=== PATIENT | female | born 1945 | race Caucasian/White ===

== ENCOUNTER → 2018-08-02 | Outpatient (CLI) | payer OTHER ==
[~2018-08-02] MED LIST: ASPIR 8181 MG PO; BIOTIN5 M1 PO; CENTRUM SILVER1 EAC4 PO; DIFLUCAN200 MG PO; FISH OIL 1,001000 M2 PO; FLAX SEED OIL1 EACH PO; HYDROCHLOROTHIA25 M1 PO; KLOR-CON 1010 MEQ PO; LOVASTATIN 20 M20 MG PO; MECLIZINE HCL25 MG PO; MELATONIN3 MG PO; METFORMIN HCL500 MG PO; OMEGA-31000 M1 PO; OMEPRAZOLE40 MG PO; PROPRANOLOL 1010 MG PO; VALACYCLOVIR1000 MG PO; VITAMIN D3400 UNIT PO
== END ==
LOC: M.RAD 07:31
DX: Z12.31 Encounter for screening mammogram for malignant neoplasm of breast (principal); K80.20 Calculus of gallbladder without cholecystitis without obstruction; K21.9 Gastro-esophageal reflux disease without esophagitis; K58.9 Irritable bowel syndrome, unspecified; R19.7 Diarrhea, unspecified

== ENCOUNTER → 2019-02-11 | Outpatient (CLI) | payer OTHER | LOC: M.ULTRA 07:17 | DX: K80.20 Calculus of gallbladder without cholecystitis without obstruction (principal) ==

== ENCOUNTER → 2019-08-11 | Outpatient (CLI) | payer OTHER | LOC: M.RAD 08-10 08:00 | DX: Z12.31 Encounter for screening mammogram for malignant neoplasm of breast (principal); Z78.0 Asymptomatic menopausal state ==

== ENCOUNTER → 2020-08-13 | Outpatient (CLI) | payer MEDICARE | LOC: M.RAD 07:47 | PROVIDERS: ATTEND Registered Nurse Diabetes Educator | DX: Z12.31 Encounter for screening mammogram for malignant neoplasm of breast (principal) ==

== ENCOUNTER → 2020-11-23 | Outpatient (CLI) | payer MEDICARE | LOC: M.ULTRA 07:01 | PROVIDERS: ATTEND Registered Nurse Diabetes Educator | DX: E83.52 Hypercalcemia (principal) ==

== ENCOUNTER → 2020-12-13 | Outpatient (CLI) | payer MEDICARE | LOC: M.NUC 12-03 07:45 | PROVIDERS: ATTEND Registered Nurse Diabetes Educator | DX: R59.9 Enlarged lymph nodes, unspecified (principal) ==

== ENCOUNTER → 2021-08-28 | Outpatient (CLI) | payer MEDICARE | LOC: M.RAD 07:50 | PROVIDERS: ATTEND Registered Nurse Diabetes Educator | DX: M85.88 Other specified disorders of bone density and structure, other site (principal); M81.0 Age-related osteoporosis without current pathological fracture; Z78.0 Asymptomatic menopausal state ==